=== PATIENT | female | born 1970 | race Caucasian/White ===

== ENCOUNTER 2016-02-24 12:09 | Emergency (ER) | payer BC ==
[~2016-02-24] VITALS: Ht 170.2 cm; Wt 108.9 kg
[2016-02-24 12:20] VITALS: BP 119/63
--- NOTE | 2016-02-24 13:22 | PHYS DOC ---
Past Medical History Past Medical History: Asthma Past Surgical History: Alcohol Use: Occasionally Drug Use: None Adult General Chief Complaint Chief Complaint: MECHANICAL FALL HPI HPI Patient is a 46 year old female presents emergency department stating that she was at home today went to turn around will she was talking on the phone and fell over her dog. She states when she fell she fell on her work left arm and shoulder. She states she is having elbow pain and shoulder pain. She states that she has a cold sensation that is inside of her arm. 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 Patient does have a decreased range of motion of the shoulder. She denies hitting her head. She has not taken anything for pain and discomfort. She does state she is right-hand dominant. Review of Systems Review of Systems Constitutional: Denies fever or chills [] Eyes: Denies change in visual acuity, redness, or eye pain [] HENT: Denies nasal congestion or sore throat [] Respiratory: Denies cough or shortness of breath [] Cardiovascular: No additional information not addressed in HPI [] GI: Denies abdominal pain, nausea, vomiting, bloody stools or diarrhea [] : Denies dysuria or hematuria [] Musculoskeletal: Denies back pain. C/o left shoulder and elbow pain Integument: Denies rash or skin lesions [] Neurologic: Denies headache, focal weakness or sensory changes [] Allergies Allergies Allergies Coded Allergies Type Severity Reaction Last Updated Verified No Known Drug Allergies 02/24/16 No Physical Exam Physical Exam Constitutional: Well developed, well nourished, no acute distress, non-toxic appearance. [] HENT: Normocephalic, atraumatic, bilateral external ears normal, oropharynx moist, no oral exudates, nose normal. [] Eyes: PERRLA, EOMI, conjunctiva normal, no discharge. [] Neck: Normal range of motion, no tenderness, supple, no stridor. [] Cardiovascular:Heart rate regular rhythm Lungs & Thorax: No respiratory distress noted Skin: Warm, dry, no erythema, no rash. [] Back: No tenderness Extremities: Left Shoulder, left elbow tenderness, no cyanosis, no clubbing, ROM intact, no edema. Slightly decreased range of motion of the left shoulder. Full range of motion of the elbow. 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 Peripheral pulses 2+ . Neurologic: Alert and oriented X 3, normal motor function, normal sensory function, no focal deficits noted. [] Psychologic: Affect normal, judgement normal, mood normal. [] Current Patient Data Vital Signs Vital Signs Date Time Temp Pulse Resp B/P Pulse Ox O2 Delivery O2 Flow Rate FiO2 02/24/16 12:20 98.1 81 18 99 Room Air 98.1 EKG EKG [] Radiology/Procedures Radiology/[place] [address] IMAGING REPORT Signed PATIENT: JESSICA MICHAELS ACCOUNT: [id number] : 1970 LOCATION: ER AGE: 46 SEX: F EXAM STATUS: REG ER ORD. PHYSICIAN: SARAH MERCADO NP REASON: FALL PROCEDURE: ELBOW LEFT 3V Left elbow radiographs History: Fall, left elbow pain. Comparison: None. Findings: AP, oblique lateral, and oblique views of the left elbow. No acute fracture or dislocation is identified. No joint effusion is seen. Impression: No acute osseous traumatic injury identified. DICTATED and SIGNED BY: IRA CARLIN MD DATE: 02/24/161331 CC: JERARDO KAUR MD; SARAH MERCADO NP ~ [] [place] [id number] IMAGING REPORT Signed PATIENT: JESSICA MICHAELS ACCOUNT: [id number] : 1970 LOCATION: ER AGE: 46 SEX: F EXAM STATUS: REG ER ORD. PHYSICIAN: SARAH MERCADO NP REASON: FALL PROCEDURE: SHOULDER 2+V LEFT Left shoulder radiographs History: Pain after fall today. Comparison: None. Findings: AP external rotation, AP internal rotation, and scapular Y-view of left shoulder. No acute fracture or dislocation is identified. Impression: No acute osseous traumatic injury identified. DICTATED and SIGNED BY: IRA CARLIN MD DATE: 02/24/161330 CC: JERARDO KAUR MD; SARAH MERCADO NP ~ Course & Med Decision Making Course & Med Decision Making Pertinent Labs and Imaging studies reviewed. (See chart for details) Since has x-rays were negative. Patient will be placed in a sling with recommendations for ibuprofen 800 mg every 8 hours. Ice packs on 20 minutes off 20 minutes several times a day elevation as much as possible. Patient will be discharged home in stable condition with signs and symptoms to return back to emergency department. Patient will be provided orthopedic name and number to follow up with. Patient agrees with discharge instructions treatment regimens and follow-up recommendations. [] Dragon Disclaimer Dragon Disclaimer This electronic medical record was generated, in whole or in part, using a voice recognition dictation system. Departure Departure Impression: Primary Impression: Fall Additional Impressions: Left shoulder pain Left elbow pain Disposition: HOME, SELF-CARE Condition: STABLE Referrals: JERARDO KAUR MD (PCP) LOYD CROOKS MD Patient Instructions: Arm Sling Use-Brief, Elbow Injury-Brief, Shoulder Pain Additional Instructions: Home to rest. With a sling until you follow up with orthopedic. Take your arm out of the sling 4-5 times a day doing active range of motion. Ibuprofen 800 mg every 8 hours. Ice packs on 20 minutes off 20 minutes several times a day. Follow-up with orthopedic within the next week. Return back to emergency #symptoms become worse. Problem Qualifiers SARAH MERCADO NP Feb 24, 2016 13:22
--- NOTE | 2016-02-24 13:34 | RAD ---
Left shoulder radiographs History: Pain after fall today. Comparison: None. Findings: AP external rotation, AP internal rotation, and scapular Y-view of left shoulder. No acute fracture or dislocation is identified. Impression: No acute osseous traumatic injury identified.
--- NOTE | 2016-02-24 13:35 | RAD ---
Left elbow radiographs History: Fall, left elbow pain. Comparison: None. Findings: AP, oblique lateral, and oblique views of the left elbow. No acute fracture or dislocation is identified. No joint effusion is seen. Impression: No acute osseous traumatic injury identified.
== END 2016-02-24 13:47 | disposition home or self-care (01) ==
LOC: ER 12:09
DX: M25.512 Pain in left shoulder (principal); M25.522 Pain in left elbow; J45.909 Unspecified asthma, uncomplicated; W19.XXXA Unspecified fall, initial encounter; Y93.89 Activity, other specified; Y92.89 Other specified places as the place of occurrence of the external cause; Y99.8 Other external cause status
CPT/HCPCS: 73030; 73080; 99284

== ENCOUNTER 2017-03-05 12:38 | Emergency (ER) | payer BC ==
[2017-03-05 14:00] LABS: AGAP ISTAT 17 mmol/L (6-14); BUN ISTAT 6 mg/dL (8-26); CHLORIDE ISTAT 102 mmol/L (98-110); CREATININE ISTAT 0.9 mg/dL (0.5-1.4); GLUCOSE ISTAT 86 mg/dL (70-99); HEMATOCRIT ISTAT 39 % (36-40); HEMOGLOBIN ISTAT 13.3 g/dL (12-15); ION CA ISTAT 1.15 mmol/L (1.13-1.32); POTASSIUM ISTAT 4.1 mmol/L (3.5-5.0); SODIUM ISTAT 138 mmol/L (135-145); TOT CO2 ISTAT 24 mmol/L (23-32)
== END 2017-03-05 14:30 | disposition home or self-care (01) ==
LOC: ER 12:38
DX: R07.89 Other chest pain (principal); F32.9 Major depressive disorder, single episode, unspecified; J45.909 Unspecified asthma, uncomplicated
CPT/HCPCS: 36415; 71045; 80047; 84484; 85014; 85018; 93005; 99284-25

== ENCOUNTER 2019-09-10 12:17 | Emergency (ER) | payer BC ==
[~2019-09-10] VITALS: Ht 170.2 cm; Wt 114.0 kg
[2019-09-10] MEDS ORDERED: IV NORMAL SALINE 1000ML BAG 1,000 ML IV SCH (13:04)
[2019-09-10] MEDS ORDERED: MORPHINE SULFATE 4 MG/ML VIAL. IV/SQ PRN (13:15)
[2019-09-10] MEDS ORDERED: VANCOMYCIN PER PHARMACY MC ONE (13:15)
[2019-09-10 13:22] LABS: BASO % 0 % (0-3); EOS # 0.2 x10^3/uL (0.0-0.7); EOS % 3 % (0-3); HEMATOCRIT 34.7 % (36.0-47.0); HEMOGLOBIN 11.7 g/dL (12.0-15.5); LYMPH # 1.3 x10^3/uL (1.0-4.8); LYMPH % 19 % (24-48); MEAN CORPUSCULAR HEMOGLOBIN 29 pg (25-35); MEAN CORPUSCULAR HGB CONC 34 g/dL (31-37); MEAN CORPUSCULAR VOLUME 85 fL (79-100); MONO # 0.5 x10^3/uL (0.0-1.1); MONO % 7 % (0-9); NEUT # 5.1 x10^3/uL (1.8-7.7); NEUT % 71 % (31-73); PLATELET COUNT 263 x10^3/uL (140-400); RED BLOOD COUNT 4.11 x10^6/uL (3.50-5.40); RED CELL DISTRIBUTION WIDTH 14.6 % (11.5-14.5); WHITE BLOOD COUNT 7.1 x10^3/uL (4.0-11.0)
--- NOTE | 2019-09-10 13:22 | RAD ---
Right hand 3 views 09/10/2019. Reason for exam: Dog bite. Cellulitis. There is diffuse soft tissue swelling. There is suggestion of a bony defect toward the proximal and of the third proximal phalanx along the ulnar side. No fracture line is seen across the bone at this level. No other fracture or dislocation is evident. There is no apparent radiopaque foreign body. IMPRESSION: There is suggestion of a bony defect toward the proximal end of the third proximal phalanx. Correlation with the area of penetrating injury would be useful. No other bony abnormality is seen. There is some soft tissue swelling consistent with cellulitis. Electronically signed by: Abdulaziz Mcelroy Jr., MD (09/10/2019 1:19 PM) [id number]
[2019-09-10 13:30] LABS: CALCIUM 8.4 mg/dL (8.5-10.1); CREATININE 0.9 mg/dL (0.6-1.0); GFR 67.1; POTASSIUM 3.6 mmol/L (3.5-5.1)
[2019-09-10] MEDS ORDERED: PIPERACILLIN/TAZOBACTAM 4.5 GM in IV NORMAL SALINE 100ML 100 ML IV ONE (13:30)
[2019-09-10 13:44] LABS: ALBUMIN 2.8 g/dL (3.4-5.0); ALBUMIN/GLOBULIN RATIO 0.7 (1.0-1.7); TOTAL BILIRUBIN 0.3 mg/dL (0.2-1.0); TOTAL PROTEIN 6.6 g/dL (6.4-8.2)
[2019-09-10] MEDS ORDERED: VANCOMYCIN 2 GM in IV NORMAL SALINE 500ML BAG 500 ML IV ONE (14:00)
--- NOTE | 2019-09-10 14:21 | PHYS DOC ---
Past Medical History Past Medical History: Asthma Past Surgical History: Smoking Status: Never Smoker Alcohol Use: Occasionally Drug Use: None General Adult EDM: Chief Complaint: HAND PROBLEM HPI: HPI: Patient is a 49 year old female who presents to the ED today with infection to the right hand from a dog bite that occurred 2 days ago. Patient reports she was transporting a foster dog that attacked her. She states she was seen at [facility] and was started on Augmentin and a stitch was placed on the right hand as well as the left hand. She states the right hand appears to have worsening infection. Patient denies any fever. Tetanus is up-to-date. Patient is right handed Review of Systems: Review of Systems: Constitutional: Denies fever or chills. [] Musculoskeletal: Denies back pain or joint pain. [] Integument: Reports dog bite to bilateral hands with infection to the right hand Neurologic: Denies headache, focal weakness or sensory changes. [] Psychiatric: Denies depression or anxiety. [] Heart Score: Risk Factors: Risk Factors: DM, Current or recent (<one month) smoker, HTN, HLP, family history of CAD, obesity. Risk Scores: Score 0 - 3: 2.5% MACE over next 6 weeks - Discharge Home Score 4 - 6: 20.3% MACE over next 6 weeks - Admit for Clinical Observation Score 7 - 10: 72.7% MACE over next 6 weeks - Early Invasive Strategies Current Medications: Current Medications Medications (Trade) Dose Ordered Sig/Marquita Start Time Stop Time Status Last Admin Dose Admin Morphine Sulfate (Morphine Sulfate) 4 mg PRN Q15MIN PRN 09/10/19 13:15 09/11/19 13:14 09/10/19 13:18 4 MG Piperacillin Sod/ Tazobactam Sod 4.5 gm/Sodium Chloride 100 ml @ 200 mls/hr 1X ONCE 09/10/19 13:30 09/10/19 13:59 DC 09/10/19 13:17 200 MLS/HR Sodium Chloride 1,000 ml @ 1,860 mls/hr Q33M 09/10/19 13:04 09/10/19 14:04 DC 09/10/19 13:18 1,860 MLS/HR Vancomycin HCl (Vanco Per Pharmacy) 1 each 1X ONCE 09/10/19 13:15 09/10/19 13:16 DC Vancomycin HCl 2 gm/Sodium Chloride 500 ml @ 250 mls/hr 1X ONCE 09/10/19 14:00 09/10/19 15:59 09/10/19 13:54 250 MLS/HR Allergies: Allergies: Allergies Coded Allergies Type Severity Reaction Last Updated Verified No Known Drug Allergies 02/24/16 No Physical Exam: PE: Constitutional: Well developed, well nourished, no acute distress, non-toxic appearance. [] Skin: Right hand with multiple scabs consistent of dog bite. There is a well approximated laceration on the right hand ventral aspect just below the middle finger MIP joint. There is erythema and mild swelling cellulitis and mild swelling to the right dorsal hand with streaking to the right forearm. There is warmth over the right dorsal hand. Full range of motion to the right hand and fingers. +2 right radial pulse. Left hand with no signs of infection. Back: No tenderness, no CVA tenderness. [] Extremities: No tenderness, no cyanosis, no clubbing, ROM intact, no edema. [] Neurologic: Alert and oriented X 3, normal motor function, normal sensory function, no focal deficits noted. [] Psychologic: Affect normal, judgement normal, mood normal. [] Current Patient Data: Labs: Laboratory Tests Test 09/10/19 13:05 White Blood Count 7.1 x10^3/uL (4.0-11.0) Red Blood Count 4.11 x10^6/uL (3.50-5.40) Hemoglobin 11.7 g/dL (12.0-15.5) L Hematocrit 34.7 % (36.0-47.0) L Mean Corpuscular Volume 85 fL (79-100) Mean Corpuscular Hemoglobin 29 pg (25-35) Mean Corpuscular Hemoglobin Concent 34 g/dL (31-37) Red Cell Distribution Width 14.6 % (11.5-14.5) H Platelet Count 263 x10^3/uL (140-400) Neutrophils (%) (Auto) 71 % (31-73) Lymphocytes (%) (Auto) 19 % (24-48) L Monocytes (%) (Auto) 7 % (0-9) Eosinophils (%) (Auto) 3 % (0-3) Basophils (%) (Auto) 0 % (0-3) Neutrophils # (Auto) 5.1 x10^3/uL (1.8-7.7) Lymphocytes # (Auto) 1.3 x10^3/uL (1.0-4.8) Monocytes # (Auto) 0.5 x10^3/uL (0.0-1.1) Eosinophils # (Auto) 0.2 x10^3/uL (0.0-0.7) Basophils # (Auto) 0.0 x10^3/uL (0.0-0.2) Sodium Level 137 mmol/L (136-145) Potassium Level 3.6 mmol/L (3.5-5.1) Chloride Level 105 mmol/L (98-107) Carbon Dioxide Level 27 mmol/L (21-32) Anion Gap 5 (6-14) L Blood Urea Nitrogen 9 mg/dL (7-20) Creatinine 0.9 mg/dL (0.6-1.0) Estimated GFR (Cockcroft-Gault) 67.1 BUN/Creatinine Ratio 10 (6-20) Glucose Level 107 mg/dL (70-99) H Lactic Acid Level 1.3 mmol/L (0.4-2.0) Calcium Level 8.4 mg/dL (8.5-10.1) L Total Bilirubin 0.3 mg/dL (0.2-1.0) Aspartate Amino Transferase (AST) 11 U/L (15-37) L Alanine Aminotransferase (ALT) 17 U/L (14-59) Alkaline Phosphatase 102 U/L (46-116) Total Protein 6.6 g/dL (6.4-8.2) Albumin 2.8 g/dL (3.4-5.0) L Albumin/Globulin Ratio 0.7 (1.0-1.7) L Procalcitonin < 0.10 ng/mL (0.00-0.10) Laboratory Tests 09/10/19 13:05 Laboratory Tests 09/10/19 13:05 Vital Signs: Vital Signs Date Time Temp Pulse Resp B/P (MAP) Pulse Ox O2 Delivery O2 Flow Rate FiO2 09/10/19 13:18 16 99 Room Air 09/10/19 12:20 98.9 89 151/86 (107) 98.9 EKG: EKG: [] Radiology/Procedures: Radiology/Procedures: []PROCEDURE: HAND RIGHT 3V Right hand 3 views 09/10/2019. Reason for exam: Dog bite. Cellulitis. There is diffuse soft tissue swelling. There is suggestion of a bony defect toward the proximal and of the third proximal phalanx along the ulnar side. No fracture line is seen across the bone at this level. No other fracture or dislocation is evident. There is no apparent radiopaque foreign body. IMPRESSION: There is suggestion of a bony defect toward the proximal end of the third proximal phalanx. Correlation with the area of penetrating injury would be useful. No other bony abnormality is seen. There is some soft tissue swelling consistent with cellulitis. Electronically signed by: Amanda Felix Jr., MD (09/10/2019 1:19 PM) [id number] DICTATED and SIGNED BY: AMANDA FELIX Jr, MD DATE: 09/10/19 1319 Course & Med Decision Making: Course & Med Decision Making Pertinent Labs and Imaging studies reviewed. (See chart for details) This is a 49-year-old female patient who presents to the ED today with right hand infection from a dog bite she sustained 2 days ago. She was seen at a different facility and started on Augmentin. She appears has worsening cellulitis. She is afebrile. Labs are negative including white count and lactic which are normal. Right hand x-rays interpreted by radiologist were noted for possible bony defect toward the proximal end of the third proximal phalanx. Correlation with the area of penetrating injury would be useful. No other bony abnormality is seen. There is some soft tissue swelling consistent with cellulitis. Right middle finger was placed in a foam splint by the ED RN. Neurovascular exam is normal. Patient was offered admission to the hospital, she refused stating she has to go home because her dogs will have no one to take care of. She was given Zosyn and vancomycin in the ED. She was given IV fluids. She will be discharged on clindamycin and be removed from Augmentin. She is provided proper return precautions including the need to return to the ED at any point for IV antibiotics or if her symptoms worsen. Dragon Disclaimer: Dragon Disclaimer: This electronic medical record was generated, in whole or in part, using a voice recognition dictation system. Departure Departure Impression: Primary Impression: Cellulitis of hand, right Additional Impressions: Dog bite, hand Qualified Codes: S61.451A - Open bite of right hand, initial encounter; W54.0XXA - Bitten by dog, initial encounter Finger fracture, right Qualified Codes: S62.662A - Nondisplaced fracture of distal phalanx of right middle finger, initial encounter for closed fracture Disposition: HOME, SELF-CARE Condition: STABLE Referrals: CASSIE RICHARDS APRN (PCP) follow up next week Patient Instructions: Animal Bite, Cellulitis, [id number] Additional Instructions: You were seen for infection to the right hand. Take the prescribed antibiotics until completed. Your right hand X-ray shows you have a possible fracture on your right middle finger tip. Please follow-up with an orthopedic doctor for this. Please stop taking Augmentin and start taking clindamycin. Scripts Hydrocodone Bit/Acetaminophen (HYDROCODONE-APAP 7.5-325 ) 1 Tab Tablet 1 TAB PO PRN Q6HRS PRN for PAIN, #12 TAB 0 Refills Prov: NICO BEACH APRN 09/10/19 Clindamycin Hcl (CLINDAMYCIN HCL) 150 Mg Capsule 3 CAP PO TID, #90 CAP Prov: NICO BEACH APRN 09/10/19 Justicifation of Admission Dx: Justifications for Admission: Justification of Admission Dx: N/A NICO BEACH APRN Sep 10, 2019 14:21
[2019-09-10 14:29] VITALS: BP 121/69
[2019-09-10] MEDS ORDERED: HYDR-2765 PO (14:32)
[2019-09-10] MEDS ORDERED: CLIN150C14 PO (14:32)
== END 2019-09-10 15:10 | disposition home or self-care (01) ==
LOC: ER 12:17
DX: S62.662A Nondisplaced fracture of distal phalanx of right middle finger, initial encounter for closed fracture (principal); S61.451A Open bite of right hand, initial encounter; R60.0 Localized edema; J45.909 Unspecified asthma, uncomplicated; Z98.890 Other specified postprocedural states; Z79.899 Other long term (current) drug therapy; W54.0XXA Bitten by dog, initial encounter; Y93.89 Activity, other specified; Y92.89 Other specified places as the place of occurrence of the external cause; Y99.8 Other external cause status
CPT/HCPCS: 29130; 36415; 73130; 80053; 83605; 84145; 85025; 87040; 96365; 96375; 99285; J2270; J2543; J3370; J7030; J7040

== ENCOUNTER 2021-02-07 13:06 | Emergency (ER) | payer SELFPAY ==
[~2021-02-07] VITALS: Ht 157.5 cm; Wt 127.0 kg
[~2021-02-07 13:06] MED LIST: CLIN150C16 PO; HYDR-2765 PO
--- NOTE | 2021-02-07 13:18 | EKG ---
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
--- NOTE | 2021-02-07 13:28 | PHYS DOC ---
Past Medical History Past Medical History: Asthma Past Surgical History: Smoking Status: Never Smoker Alcohol Use: Occasionally Drug Use: None General Adult EDM: Chief Complaint: CHEST PAIN HPI: HPI: Patient is a 51-year-old female who presents to the emergency department for left-sided chest pain that has been intermittent since 10:00 this morning. Patient reports that it feels like someone poked her in the left side of her chest proximal to her shoulder about 4 times a day and the pain resolved syncope today. Patient reports that she has had this pain in the past but it usually goes away and does not come back. Patient denies any shortness of breath, nausea, vomiting, fevers. She has a history of asthma and lymphedema in her right lower leg. Review of Systems: Review of Systems: 14 body systems of the review of systems have been reviewed. See HPI for pertinent positive and negative responses, otherwise all other systems are negative, nonpertinent or noncontributory Heart Score: C/O Chest Pain: Yes (Patient not currently having any chest pain) HEART Score for Chest Pain: HEART Score for Chest Pain Response (Comments) Value History Slighlty/Non-Suspicious 0 ECG Nonspecific Repolarizatio 1 Age >45 - < 65 1 Risk Factors 1 or 2 Risk Factors (Obesity) 1 Troponin < Normal Limit 0 Total 3 Risk Factors: Risk Factors: DM, Current or recent (<one month) smoker, HTN, HLP, family history of CAD, obesity. Risk Scores: Score 0 - 3: 2.5% MACE over next 6 weeks - Discharge Home Score 4 - 6: 20.3% MACE over next 6 weeks - Admit for Clinical Observation Score 7 - 10: 72.7% MACE over next 6 weeks - Early Invasive Strategies Allergies: Allergies: Allergies Coded Allergies Type Severity Reaction Last Updated Verified No Known Drug Allergies 02/24/16 No Physical Exam: PE: Constitutional: Well developed, well nourished, no acute distress, non-toxic appearance. [] HENT: Normocephalic, atraumatic, bilateral external ears normal, oropharynx moist, no oral exudates, nose normal. [] Eyes: PERRL, EOMI, conjunctiva normal, no discharge. [] Neck: Normal range of motion, no stridor Cardiovascular:Heart rate regular rhythm, no murmur [] Lungs & Thorax: Bilateral breath sounds clear to auscultation [] Abdomen: Bowel sounds normal, soft, no tenderness, no masses, no pulsatile masses. [] Skin: Warm, dry, no erythema, no rash. [] Back: Normal range of motion Extremities: No tenderness, no cyanosis, no clubbing, ROM intact, 3+ edema noted to right lower leg consistent with patient's lymphedema Neurologic: Alert and oriented X 3, normal motor function, normal sensory function, no focal deficits noted. [] Psychologic: Affect normal, judgement normal, mood normal. [] Current Patient Data: Labs: Laboratory Tests Test 02/07/21 13:25 White Blood Count 6.4 x10^3/uL Red Blood Count 4.87 x10^6/uL Hemoglobin 13.7 g/dL Hematocrit 40.5 % Mean Corpuscular Volume 83 fL Mean Corpuscular Hemoglobin 28 pg Mean Corpuscular Hemoglobin Concent 34 g/dL Red Cell Distribution Width 14.7 % Platelet Count 320 x10^3/uL Neutrophils (%) (Auto) 61 % Lymphocytes (%) (Auto) 26 % Monocytes (%) (Auto) 7 % Eosinophils (%) (Auto) 4 % Basophils (%) (Auto) 1 % Neutrophils # (Auto) 3.9 x10^3/uL Lymphocytes # (Auto) 1.7 x10^3/uL Monocytes # (Auto) 0.5 x10^3/uL Eosinophils # (Auto) 0.3 x10^3/uL Basophils # (Auto) 0.1 x10^3/uL Sodium Level 138 mmol/L Potassium Level 4.1 mmol/L Chloride Level 101 mmol/L Carbon Dioxide Level 26 mmol/L Anion Gap 11 Blood Urea Nitrogen 10 mg/dL Creatinine 0.7 mg/dL Estimated GFR (Cockcroft-Gault) 88.9 BUN/Creatinine Ratio 14 Glucose Level 98 mg/dL Calcium Level 8.2 mg/dL Total Bilirubin 0.3 mg/dL Aspartate Amino Transf (AST/SGOT) 10 U/L Alanine Aminotransferase (ALT/SGPT) 18 U/L Alkaline Phosphatase 123 U/L Troponin I High Sensitivity < 4 ng/L Total Protein 7.1 g/dL Albumin 3.2 g/dL Albumin/Globulin Ratio 0.8 EKG: EKG: EKG performed by ER staff at 1313 shows sinus rhythm, no STEMI read by Dr. Christianson at 1320 [] Radiology/Procedures: Radiology/Procedures: []PROCEDURE: PORTABLE CHEST 1V EXAM: Chest, single view. HISTORY: Chest pain. COMPARISON: 03/05/2017 FINDINGS: A frontal view of the chest is obtained. There is no infiltrate, pleural effusion or pneumothorax. The heart is normal in size. IMPRESSION: No acute pulmonary finding. Electronically signed by: Ashley Webster MD (02/07/2021 1:31 PM) [id number] DICTATED and SIGNED BY: ASHLEY WEBSTER MD DATE: 02/07/21 [id number] 0 Course & Med Decision Making: Course & Med Decision Making Pertinent Labs and Imaging studies reviewed. (See chart for details) Patient resents the emergency department for left-sided chest pain that has been intermittent since this morning. Patient reports that it feels like someone pokes her in the chest for times and then resolves. Patient does have a history of chest pain due to anxiety. Patient's work-up in the ER consisted of blood work, EKG and chest x-ray. Patient is not having any current chest pain. Patient's blood work is unremarkable. Chest x-ray shows no acute findings. Patient's heart score is 3. Patient advised to follow-up with her primary care provider regarding her chest pain. Patient did not have any episodes of chest pain. I discussed with patient all findings and diagnostic testing as well as the need to follow-up with PCP for further evaluation and treatment or return to the ER if any new or worsening symptoms. Strict return precautions were also discussed at length. Patient voiced understanding and agreement with the plan. Patient is hemodynamically stable at the time of disposition. Dragon Disclaimer: Camille Disclaimer: This electronic medical record was generated, in whole or in part, using a voice recognition dictation system. Departure Departure Impression: Primary Impression: Atypical chest pain Disposition: HOME / SELF CARE / HOMELESS Condition: GOOD Referrals: CASSIE RICHARDS APRN (PCP) Patient Instructions: Chest Pain (Nonspecific) Additional Instructions: You were seen in the emergency department for chest pain that has been intermittent. At this time, it does not appear that you are experiencing acute coronary syndrome. However, if you continue to have chest pain or gets worse, you need to return to the emergency department for reevaluation. Please take Tylenol and/ibuprofen for your pain at home. Please follow-up with your primary care provider tomorrow regarding your ER visit. Please return to the emergency department if you develop worsening of your chest pain or return of your chest pain, shortness of breath, intractable nausea or vomiting, high fevers refractory to treatment or any new or worsening concerns. NIKKY ZELAYA BATCH STILL OPERATOR Feb 07, 2021 13:28
--- NOTE | 2021-02-07 13:33 | RAD ---
EXAM: Chest, single view. HISTORY: Chest pain. COMPARISON: 03/05/2017 FINDINGS: A frontal view of the chest is obtained. There is no infiltrate, pleural effusion or pneumo thorax. The heart is normal in size. IMPRESSION: No acute pulmonary finding. Electronically signed by: Ashley Saxena MD (02/07/2021 1:31 PM) [id number]
[2021-02-07 13:38] LABS: BASO # 0.1 x10^3/uL (0.0-0.2); BASO % 1 % (0-3); EOS # 0.3 x10^3/uL (0.0-0.7); EOS % 4 % (0-3); HEMATOCRIT 40.5 % (36.0-47.0); HEMOGLOBIN 13.7 g/dL (12.0-15.5); LYMPH # 1.7 x10^3/uL (1.0-4.8); LYMPH % 26 % (24-48); MEAN CORPUSCULAR HEMOGLOBIN 28 pg (25-35); MEAN CORPUSCULAR HGB CONC 34 g/dL (31-37); MEAN CORPUSCULAR VOLUME 83 fL (79-100); MONO # 0.5 x10^3/uL (0.0-1.1); MONO % 7 % (0-9); NEUT # 3.9 x10^3/uL (1.8-7.7); NEUT % 61 % (31-73); PLATELET COUNT 320 x10^3/uL (140-400); RED BLOOD COUNT 4.87 x10^6/uL (3.50-5.40); RED CELL DISTRIBUTION WIDTH 14.7 % (11.5-14.5); WHITE BLOOD COUNT 6.4 x10^3/uL (4.0-11.0)
[2021-02-07 13:45] VITALS: BP 141/77
[2021-02-07 13:55] LABS: CALCIUM 8.2 mg/dL (8.5-10.1); CREATININE 0.7 mg/dL (0.6-1.0); GFR 88.9; POTASSIUM 4.1 mmol/L (3.5-5.1)
[2021-02-07 14:01] LABS: ALBUMIN 3.2 g/dL (3.4-5.0); ALBUMIN/GLOBULIN RATIO 0.8 (1.0-1.7); TOTAL BILIRUBIN 0.3 mg/dL (0.2-1.0); TOTAL PROTEIN 7.1 g/dL (6.4-8.2)
== END 2021-02-07 14:29 | disposition home or self-care (01) ==
LOC: ER 13:06
DX: R07.89 Other chest pain (principal); J45.909 Unspecified asthma, uncomplicated
CPT/HCPCS: 36415; 71045; 80053; 84484; 85025; 93005; 99285-25

== ENCOUNTER 2021-05-31 14:00 | Emergency (ER) | payer OTHER ==
[~2021-05-31] VITALS: Ht 170.2 cm; Wt 270.0 kg
[2021-05-31 14:10] VITALS: BP 156/87
[2021-05-31] MEDS ORDERED: DIPHTH,PERTUSS(ACELL),TET TOX 0.5 ML DISP.SYRIN. VAX IM ONE (15:00)
[2021-05-31] MEDS ORDERED: AMOXICILLIN/K CLAV 875/125MG TABLET. PO ONE (15:00)
--- NOTE | 2021-05-31 15:13 | RAD ---
AP, lateral, and oblique views of the right hand were performed. History: Dog bite on second digit Comparison: none. No fracture or dislocation is seen. No radiopaque foreign body. There is soft tissue swelling at the distal aspect of the second digit. Electronically signed by: Juan Alberto Forrest MD (05/31/2021 3:11 PM) [facility]
--- NOTE | 2021-05-31 15:20 | PHYS DOC ---
Past Medical History Past Medical History: Asthma Additional Past Medical Histor: Lymphedema, heart Murmur Past Surgical History: Smoking Status: Never Smoker Alcohol Use: Rarely Drug Use: None General Adult EDM: Chief Complaint: LACERATION/AVULSION HPI: HPI: Patient is a 51-year-old female who presents to the emergency department complaining of a finger laceration of her right index finger after being bit by her dog. 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 Patient states the dog's immunizations are up-to-date. Patient reports her last tetanus immunization was longer than 5 years ago. Patient states she thinks she needs an x-ray, a suture repair, and started on antibiotics. Patient complains of mild pain, less than a 1/10 of the affected finger. Patient denies other injury. Review of Systems: Review of Systems: 14 body systems of review of systems have been reviewed. See HPI for pertinent positives and negative responses, otherwise all other systems are negative, nonpertinent or noncontributory. Constitutional: Negative except as outlined in HPI above. Skin: Negative except as outlined in HPI above. Eyes: Negative except as outlined in HPI above. HENT: Negative except as outlined in HPI above. Respiratory: Negative except as outlined in HPI above. Cardiovascular: Negative except as outlined in HPI above. GI: Negative except as outlined in HPI above. : Negative except as outlined in HPI above. Musculoskeletal: Negative except as outlined in HPI above. Integument: Negative except as outlined in HPI above. Neurologic: Negative except as outlined in HPI above. Endocrine: Negative except as outlined in HPI above. Lymphatic: Negative except as outlined in HPI above. Psychiatric: Negative except as outlined in HPI above. Heart Score: C/O Chest Pain: No Risk Factors: Risk Factors: DM, Current or recent (<one month) smoker, HTN, HLP, family history of CAD, obesity. Risk Scores: Score 0 - 3: 2.5% MACE over next 6 weeks - Discharge Home Score 4 - 6: 20.3% MACE over next 6 weeks - Admit for Clinical Observation Score 7 - 10: 72.7% MACE over next 6 weeks - Early Invasive Strategies Current Medications: Current Medications Medications (Trade) Dose Ordered Sig/Marquita Start Time Stop Time Status Last Admin Dose Admin Amoxicillin/ Clavulanate Potassium (Augmentin 875/ 125mg) 1 tab 1X ONCE 05/31/21 15:00 05/31/21 15:01 DC 05/31/21 15:15 1 TAB Diphtheria/ Tetanus/Acell Pertussis (Boostrix) 0.5 ml ONCE ONCE 05/31/21 15:00 05/31/21 15:01 DC 05/31/21 15:16 0.5 ML Allergies: Allergies: Allergies Coded Allergies Type Severity Reaction Last Updated Verified No Known Drug Allergies 02/24/16 No Physical Exam: PE: Constitutional: Well developed, well nourished, no acute distress, non-toxic appearance. 51-year-old female in no apparent distress. HENT: Normocephalic, atraumatic. Eyes: Conjunctiva normal, no discharge. Neck: Normal range of motion, no stridor. Cardiovascular: No cyanosis appreciated, distal cap refill less than 2 seconds. Lungs & Thorax: Patient is in no respiratory distress, no audible adventitious lung sounds appreciated. Abdomen: Nontender, no abnormalities noted. Skin: Warm, dry, no erythema, no rash. See extremity note for focused skin examination. Back: No tenderness, no deformities. Extremities: No tenderness, no cyanosis, no clubbing, ROM intact, no edema. Except for right hand index finger distal phalanx lateral to palmar aspect has 1 cm curved laceration, bleeding controlled, distal cap refills less than 2 seconds, the nail is not involved. Full flexion and extension of all finger joints. Full-thickness laceration. There is no bone or tendon appreciated or visualized. Neurologic: Alert and oriented X 3, normal motor function, normal sensory function, no focal deficits noted. Psychologic: Affect normal, judgement normal, mood normal. Current Patient Data: Vital Signs: Vital Signs Date Time Temp Pulse Resp B/P (MAP) Pulse Ox O2 Delivery O2 Flow Rate FiO2 05/31/21 14:10 98.4 79 18 156/87 (110) 97 Room Air 98.4 EKG: EKG: [] Radiology/Procedures: Radiology/Procedures: REASON: Dog bite wound attention #2 digit distal phalanx PROCEDURE: HAND RIGHT 3V AP, lateral, and oblique views of the right hand were performed. History: Dog bite on second digit Comparison: none. No fracture or dislocation is seen. No radiopaque foreign body. There is soft tissue swelling at the distal aspect of the second digit. Electronically signed by: Juan Alberto Forrest MD (05/31/2021 3:11 PM) [facility] Course & Med Decision Making: Course & Med Decision Making Pertinent Labs and Imaging studies reviewed. (See chart for details) 51-year-old female, vital signs reviewed, presents emerged from concerning laceration suffered by a dog bite approximately 1 hour prior to arrival. Physical examination is consistent with patient's explanation of events. Fi ngertip injury appears to be laceration in nature more than single puncture wound from tooth, will loosely bring edges together to hold approximation of skin with suture. Will start on Augmentin twice daily x10 days. See laceration repair note. The patient's tetanus immunization was brought up-to-date today with Tdap medication. Reviewed home suture care, sutures removed in 7 to 10 days, follow-up with primary care for suture removal, signs and symptoms of infection, antibiotic regimen and side effects, return to ER precautions and concerns were reviewed, patient gave verbal understanding of and is amenable to ED discharge planning. Discussed with the patient all findings and diagnostic testing as well as the need to follow-up with their primary care provider for further evaluation and treatment or return to the ED if any new or worsening symptoms. Strict return precautions were also discussed at length, the patient voiced understanding and agreement with the discharge planning. The patient was nontoxic in appearance, in no apparent distress, and hemodynamically stable at the time of disposition. Dragon Disclaimer: Dragon Disclaimer: This electronic medical record was generated, in whole or in part, using a voice recognition dictation system. Laceration Repair Lac Repair Indication: Fingertip laceration Time: 1600 Confirmed: Patient, procedure, side, and site correct. Consent: Patient, has given verbal consent. Description/repair Procedure: The affected finger was first soaked for 15 minutes and chlorhexidine normal saline soapy solution, the patient was then placed in the appropriate position and anesthesia around the was achieved with 3 cc digital block using 1% lidocaine without epinephrine. The area was then vigorously irrigated with 500 cc normal saline. The laceration was loosely closed with 2 interrupted sutures using 5-0 nylon. The wound area was then dressed with bacitracin and Band-Aid per ED nursing staff. Complexity: Single layer. Post procedure exam: Circulation, motor, sensory examination intact, bleeding controlled. Total repaired wound length: 1 cm. Other Items: There were no other items The patient tolerated the procedure well. Complications: Laceration suffered from dog bite, edges were loosely approximated and sutured. Performed by: Prakash Orozco, [employer]AR[employer]DH[employer] Supervision: Dr. Kamara was present for consult regarding the critical aspects of the procedure including closure and post procedure exam. Total time: 25 minutes. Departure Departure Impression: Primary Impression: Dog bite of finger Qualified Codes: S61.259A - Open bite of unspecified finger without damage to nail, initial encounter; W54.0XXA - Bitten by dog, initial encounter Additional Impressions: Laceration of finger Qualified Codes: S61.210A - Laceration without foreign body of right index finger without damage to nail, initial encounter Need for Tdap vaccination Disposition: HOME / SELF CARE / HOMELESS Condition: GOOD Referrals: CASSIE RICHARDS APRN (PCP) Patient Instructions: Animal Bite, Fingertip Laceration Additional Instructions: You were seen here in the emergency department after a dog bite that caused a laceration to your right finger tip. This was loosely sutured with 2 nylon sutu res that will require removal in 7 to 10 days. As we discussed please keep clean and dry, cleanse 2-3 times a day with mild soap and water and apply antibiotic ointment. Cover with Band-Aid, follow-up with your primary care physician for suture removal in 7 to 10 days. As we discussed because of the nature of the laceration was caused by a dog bite I have started you on a antibi otic, you will take this twice a day for the next 10 days. Watch for signs and symptoms of infection. Return to the emergency department for worsening symptoms or other concerns. Thank you for visiting our Emergency Department. It was a pleasure taking care of you today in the emergency department and we appreciate you trusting us with your care. If any additional problems come up don't hesitate to return to visit us. Please follow up with your primary care provider so they can plan additional care if needed and know about the problem that you had. If symptoms worsen come back to the Emergency Department. Any concerning symptoms that start such as chest pain, shortness of air, weakness or numbness on one side of the body, running high fevers or any other concerning symptoms return to the ER. Scripts Amoxicillin/Potassium Clav (AMOX TR-K CLV 875-125 MG TAB) 1 Each Tablet 1 TAB PO BID, #20 TAB 0 Refills Prov: PRAKASH KIDD APRN 05/31/21 PRAKASH KIDD APRN May 31, 2021 15:20
[2021-05-31] MEDS ORDERED: BACITRACIN TOPICAL OINT PACKET. TP ONE (16:42)
[2021-05-31] MEDS ORDERED: AMOX1TAB11 PO ×2 (16:46→16:47)
== END 2021-05-31 16:40 | disposition home or self-care (01) ==
LOC: ER 14:00
DX: S61.210A Laceration without foreign body of right index finger without damage to nail, initial encounter (principal); J45.909 Unspecified asthma, uncomplicated; W54.0XXA Bitten by dog, initial encounter; Y93.89 Activity, other specified; Y92.89 Other specified places as the place of occurrence of the external cause; Y99.8 Other external cause status
CPT/HCPCS: 12001; 73130; 90471; 90715; 99283